=== PATIENT | female | born 1955 | race Caucasian/White ===

== ENCOUNTER 2020-02-07 17:35 | Emergency (ER) | payer OTHER ==
[~2020-02-07] VITALS: Ht 167.6 cm; Wt 63.5 kg
[2020-02-07] MEDS ORDERED: LEVOTHYROXINE50 MCG PO (19:11)
[2020-02-07] MEDS ORDERED: LIOTHYRONINE S25 MCG PO (19:11)
== END 2020-02-07 21:45 | disposition home or self-care (01) ==
LOC: ED 17:35
DX: B34.9 Viral infection, unspecified (principal); Z20.828 Contact with and (suspected) exposure to other viral communicable diseases; E03.9 Hypothyroidism, unspecified; Z88.8 Allergy status to other drugs, medicaments and biological substances; Z79.899 Other long term (current) drug therapy
CPT/HCPCS: 71045; 80053; 81001; 85025; 85379; 87502; 99285-25; C9803; U0003